=== PATIENT | female | born 1945 ===

== ENCOUNTER 2018-03-03 23:15 | Emergency (ER) | payer MEDICARE ==
[2018-03-04] MEDS ORDERED: Meclizine HCl 25 MG TAB ONE (00:11)
== END 2018-03-04 00:40 | disposition home or self-care (01) ==
LOC: MADERS 23:15
DX: R42 Dizziness and giddiness (principal); I10 Essential (primary) hypertension
CPT/HCPCS: 99283

== ENCOUNTER 2022-01-03 20:31 | Emergency (ER) | payer MEDICARE ==
[2022-01-03] MEDS ORDERED: traMADol HCl 50 MG TAB ONE (21:12)
== END 2022-01-03 21:44 | disposition home or self-care (01) ==
LOC: MADERS 20:31
DX: S09.90XA Unspecified injury of head, initial encounter (principal); S00.03XA Contusion of scalp, initial encounter; I10 Essential (primary) hypertension; W01.198A Fall on same level from slipping, tripping and stumbling with subsequent striking against other object, initial encounter; Y92.009 Unspecified place in unspecified non-institutional (private) residence as the place of occurrence of the external cause
CPT/HCPCS: 70450; 72125